=== PATIENT | female | born 1960 | race Asian ===

== ENCOUNTER 2024-04-29 19:04 | Inpatient (IN) | payer MEDICARE, MEDICAID ==
[~2024-04-29] VITALS: Ht 129.5 cm; Wt 44.7 kg
[2024-04-29] MEDS ORDERED: AMLO-257 PO (19:17)
[2024-04-29] MEDS ORDERED: CHOL25TA4 PO (19:27)
[2024-04-29 19:47] LABS: BASOPHILS % (AUTO) 0.4 % (0.0-2.0); EOSINOPHILS % (AUTO) 0.1 % (1.0-6.0); HEMATOCRIT 36.9 % (36-46); HEMOGLOBIN 12.5 g/dL (12.0-16.0); LYMPHOCYTES # (AUTO) 1.4 K/uL (1.0-4.8); LYMPHOCYTES % (AUTO) 8.9 % (22.0-44.0); MEAN CORPUSCULAR HGB CONC 33.8 G/dL (31.0-37.0); MEAN CORPUSCULAR VOLUME 98 fL (80-100); MONOCYTES # (AUTO) 1.3 K/uL (0.1-1.0); MONOCYTES % (AUTO) 7.7 % (2.0-9.0); NEUTROPHILS # (AUTO) 13.5 K/uL (1.8-7.7); NEUTROPHILS % (AUTO) 82.9 % (40.0-70.0); PLATELET COUNT (AUTO) 361 K/uL (150-450); RED BLOOD CELL COUNT(AUTO) 3.78 MIL/uL (4.00-5.20); RED CELL DISTRIBUTION WIDTH 14.4 % (11.5-14.5); WHITE BLOOD COUNT (AUTO) 16.3 K/uL (4.5-11.0)
[2024-04-29 20:03] LABS: ALBUMIN 2.9 g/dL (3.4-5.0); BILIRUBIN,DIRECT 0.8 mg/dL (0.00-0.20); BILIRUBIN,TOTAL 3.5 mg/dL (0.1-1.0); CREATININE 1.01 mg/dL (0.60-1.30); TOTAL PROTEIN, SERUM 7.8 g/dL (6.4-8.2)
[2024-04-29 20:09] LABS: POTASSIUM 2.8 mmol/L (3.5-5.1)
[2024-04-29] MEDS ORDERED: 0.9% SODIUM CHLORIDE 10 ML SYRINGE IVP PRN (20:15)
[2024-04-29] MEDS: POTASSIUM CHL 10 MEQ/WATER 50 ML IV SCH (20:18)
[2024-04-29] MEDS: SODIUM CHLORIDE 0.9% 1,150 ML IV ONE (20:18)
[2024-04-29 20:53] LABS: PROTHROMBIN TIME 11.1 SEC (9.4-11.6)
[2024-04-29 20:54] LABS: LACTIC ACID 2.1 mmol/L (0.4-2.0)
[2024-04-29] MEDS: CefTRIAXone 1 GM/DEXTROSE 50 ML IV ONE (21:19)
[2024-04-29] MEDS ORDERED: ZOLPIDEM TARTRATE 5 MG TABLET PO PRN (21:45)
[2024-04-29] MEDS ORDERED: MORPHINE SULFATE 2 MG/ML SYRINGE IVP PRN (21:45)
[2024-04-29] MEDS ORDERED: BISACODYL 10 MG RECTAL RECTAL SUPPOSITORY PR PRN (21:45)
[2024-04-29] MEDS ORDERED: MAGNESIUM SULFATE 2 GM/WATER 50 ML IV PRN (21:45)
[2024-04-29] MEDS ORDERED: MAGNESIUM SULFATE 4 GM/WATER 100 ML IV PRN (21:45)
[2024-04-29] MEDS ORDERED: MAGNESIUM HYDROXIDE SUSPENSION 30 ML UDCUP PO PRN (21:45)
[2024-04-29] MEDS ORDERED: MAGNESIUM OXIDE 400 MG TABLET PO PRN (21:45)
[2024-04-29] MEDS ORDERED: HYDROCODONE/ACETAMINOPHEN 5-325 MG TABLET PO PRN (21:45)
[2024-04-29 21:50] LABS: COVID AG,FIA SOURCE NASAL SWAB
[2024-04-29 22:00] LABS: APPEARANCE,URINE TURBID (CLEAR); BILIRUBIN,URINE NEGATIVE (NEGATIVE); COLOR,URINE YELLOW (YELLOW); GLUCOSE, URINE (UA) NEGATIVE (NEGATIVE); KETONES,URINE NEGATIVE (NEGATIVE); LEUKOCYTE ESTERASE ,URINE LARGE (NEGATIVE); NITRATE,URINE NEGATIVE (NEGATIVE); OCCULT BLOOD,URINE LARGE (NEGATIVE); PROTEIN,URINE 300-600,SEE CONFIRM mg/dL (NEGATIVE); SPECIFIC GRAVITIY, URINE 1.008 (1.003-1.030)
[2024-04-29 22:18] LABS: SARS-COV2 (COVID) ANTIGEN,FIA Negative (Negative)
[2024-04-29 22:19] LABS: INFLUENZA TYPE A NEGATIVE FOR TYPE A (NEGATIVE); INFLUENZA TYPE B NEGATIVE FOR TYPE B (NEGATIVE)
[2024-04-29 22:21] LABS: BACTERIA,URINE Many /HPF (None Seen)
[2024-04-29 22:30] LABS: SULFOSALICYLIC ACID,URINE 2+ (Negative)
[2024-04-29] MEDS: PIPERACILLIN/TAZO 3.375 GM/D5W 50 ML IV SCH (22:31)
[2024-04-29] MEDS: HEPARIN SODIUM,PORCINE 5,000 UNITS/ML VIAL SQ SCH (23:22)
[2024-04-29] MEDS: POTASSIUM CHL 10 MEQ/WATER 50 ML IV PRN (23:22)
[2024-04-29 23:23] VITALS: BP 126/71; PULSE 124; RESP 18; TEMP 98; O2SAT 97
[2024-04-29] MEDS: POTASSIUM CHLORIDE 40 MEQ in SODIUM CHLORIDE 0.9% 1,000 ML IV ONE (23:39)
[2024-04-30] MEDS ORDERED: INFLUENZA VIRUS VACCINE TVS (6MO+) 2024-25/PF 45 MCG/0.5 ML SYRINGE IM. ONE (03:00)
[2024-04-30 04:45] VITALS: BP 134/65; PULSE 109; RESP 18; TEMP 98.1; O2SAT 98
[2024-04-30 07:28] VITALS: BP 150/81; PULSE 53; RESP 18; TEMP 98; O2SAT 98
[2024-04-30] MEDS: AmLODIPine BESYLATE 5 MG TABLET PO SCH (08:26)
[2024-04-30] MEDS: CHOLECALCIFEROL (VIT D3) 1,000 UNITS [25 MCG] TABLET PO SCH (08:26)
[2024-04-30] MEDS: PANTOPRAZOLE SODIUM 40 MG/VIAL IVP SCH (08:26)
[2024-04-30 12:00] VITALS: BP 132/75; PULSE 76; RESP 18; TEMP 98; O2SAT 98
[2024-04-30 13:26] LABS: GLUCOMETER DEV NAME(LOC) 5N.2C; GLUCOSE,POINT OF CARE 184 MG/DL (70-110)
[2024-04-30 16:22] VITALS: BP 123/68; PULSE 66; RESP 18; TEMP 98; O2SAT 97
[2024-04-30 20:30] VITALS: BP 133/79; PULSE 107; RESP 18; TEMP 97.9; O2SAT 95
[2024-04-30] MEDS ORDERED: DEXTROSE 50%-WATER 25 GM/50 ML SYRINGE IVP PRN (22:45)
[2024-05-01] VITALS (8 sets, daily range): BP systolic 126–139; BP diastolic 62–86; PULSE 96–107; RESP 16–24; TEMP 97.4–99.6; O2SAT 95–99
[2024-05-01 07:29] LABS: BASOPHILS % (AUTO) 0.6 % (0.0-2.0); EOSINOPHILS % (AUTO) 2.1 % (1.0-6.0); HEMATOCRIT 34.1 % (36-46); HEMOGLOBIN 11.6 g/dL (12.0-16.0); LYMPHOCYTES # (AUTO) 2.4 K/uL (1.0-4.8); LYMPHOCYTES % (AUTO) 28.8 % (22.0-44.0); MEAN CORPUSCULAR HEMOGLOBIN 33.3 pg (26.0-34.0); MEAN CORPUSCULAR HGB CONC 34.2 G/dL (31.0-37.0); MEAN CORPUSCULAR VOLUME 97 fL (80-100); MONOCYTES # (AUTO) 0.9 K/uL (0.1-1.0); MONOCYTES % (AUTO) 10.7 % (2.0-9.0); NEUTROPHILS # (AUTO) 4.8 K/uL (1.8-7.7); NEUTROPHILS % (AUTO) 57.8 % (40.0-70.0); PLATELET COUNT (AUTO) 334 K/uL (150-450); RED CELL DISTRIBUTION WIDTH 15.1 % (11.5-14.5); WHITE BLOOD COUNT (AUTO) 8.2 K/uL (4.5-11.0)
[2024-05-01 07:46] LABS: ANION GAP 9 mmol/L (8-16); CALCIUM, TOTAL 8.5 mg/dL (8.8-10.5); CARBON DIOXIDE 24 mmol/L (22-29); CHLORIDE 107 mmol/L (98-107); CREATININE 0.77 mg/dL (0.60-1.30); GLOMERULAR FILTR. RATE CALC > 60 mL/min (>60); GLUCOSE,RANDOM 112 mg/dL (70-110); POTASSIUM 3.3 mmol/L (3.5-5.1); SODIUM SERUM 140 mmol/L (136-145); UREA NITROGEN, BLOOD 17 mg/dL (7-18)
[2024-05-01 09:36] LABS: GLUCOMETER DEV NAME(LOC) 5N.2C; GLUCOSE,POINT OF CARE 234 MG/DL (70-110)
[2024-05-01 09:36] LABS: GLUCOMETER DEV NAME(LOC) 5N.2C; GLUCOSE,POINT OF CARE 127 MG/DL (70-110)
[2024-05-01] MEDS: MINERAL OIL 133 ML ENEMA PR ONE (10:00)
[2024-05-01] MEDS: SODIUM CHLORIDE 0.9% 1,000 ML IV ONE (10:54)
[2024-05-01] MEDS: POTASSIUM CHLORIDE 20 MEQ ER TABLET PO PRN (11:14)
[2024-05-01] MEDS: ACETAMINOPHEN 325 MG TABLET PO PRN (16:42)
[2024-05-01 20:20] LABS: GLUCOMETER DEV NAME(LOC) 5N.2C; GLUCOSE,POINT OF CARE 123 MG/DL (70-110)
[2024-05-01] MEDS: INSULIN LISPRO 100 UNITS/ML SQ PRN (20:20)
[2024-05-01 20:21] LABS: GLUCOMETER DEV NAME(LOC) 5S.1D; GLUCOSE,POINT OF CARE 169 MG/DL (70-110)
[2024-05-01] MEDS: IPRATROPIUM BROMIDE 0.5 MG/2.5 ML NEB SOLUTION NEB PRN (20:36)
[2024-05-01] MEDS: ALBUTEROL SULFATE 2.5 MG/0.5 ML NEB SOLUTION NEB PRN (20:36)
[2024-05-01] MEDS: ONDANSETRON HCL 4 MG/2 ML VIAL IVP PRN (21:34)
[2024-05-02 04:23] VITALS: BP 157/78; PULSE 87; RESP 19; TEMP 98.3; O2SAT 99
[2024-05-02 07:21] LABS: EOSINOPHILS % (AUTO) 3.3 % (1.0-6.0); HEMOGLOBIN 11.6 g/dL (12.0-16.0); LYMPHOCYTES # (AUTO) 2.4 K/uL (1.0-4.8); MEAN CORPUSCULAR HEMOGLOBIN 32.8 pg (26.0-34.0); MEAN CORPUSCULAR HGB CONC 33.2 G/dL (31.0-37.0); MEAN CORPUSCULAR VOLUME 99 fL (80-100); MONOCYTES # (AUTO) 0.4 K/uL (0.1-1.0); MONOCYTES % (AUTO) 6.4 % (2.0-9.0); NEUTROPHILS # (AUTO) 3.8 K/uL (1.8-7.7); NEUTROPHILS % (AUTO) 55.3 % (40.0-70.0); PLATELET COUNT (AUTO) 354 K/uL (150-450); RED BLOOD CELL COUNT(AUTO) 3.55 MIL/uL (4.00-5.20); RED CELL DISTRIBUTION WIDTH 15.1 % (11.5-14.5); WHITE BLOOD COUNT (AUTO) 6.9 K/uL (4.5-11.0)
[2024-05-02 07:35] LABS: ANION GAP 9 mmol/L (8-16); CALCIUM, TOTAL 8.5 mg/dL (8.8-10.5); CARBON DIOXIDE 23 mmol/L (22-29); CHLORIDE 107 mmol/L (98-107); CREATININE 0.66 mg/dL (0.60-1.30); GLOMERULAR FILTR. RATE CALC > 60 mL/min (>60); GLUCOSE,RANDOM 110 mg/dL (70-110); POTASSIUM 3.5 mmol/L (3.5-5.1); SODIUM SERUM 139 mmol/L (136-145); UREA NITROGEN, BLOOD 15 mg/dL (7-18)
[2024-05-02 08:09] VITALS: BP 153/81; PULSE 96; RESP 18; TEMP 97.8; O2SAT 97
[2024-05-02 11:46] LABS: GLUCOMETER DEV NAME(LOC) 6S.1D; GLUCOSE,POINT OF CARE 110 MG/DL (70-110)
[2024-05-02 11:46] LABS: GLUCOMETER DEV NAME(LOC) 6S.1D; GLUCOSE,POINT OF CARE 145 MG/DL (70-110)
[2024-05-02 16:19] VITALS: BP 129/66; PULSE 95; RESP 17; TEMP 97.8; O2SAT 96
[2024-05-02] MEDS: SODIUM CHLORIDE 0.9% 1,000 ML IV ONE (16:34)
[2024-05-02 19:26] VITALS: BP 148/91; PULSE 92; RESP 17; TEMP 98.9; O2SAT 96
[2024-05-02 21:51] LABS: GLUCOMETER DEV NAME(LOC) 6S.1D; GLUCOSE,POINT OF CARE 114 MG/DL (70-110)
[2024-05-02 21:51] LABS: GLUCOMETER DEV NAME(LOC) 6S.1D; GLUCOSE,POINT OF CARE 179 MG/DL (70-110)
[2024-05-02 22:26] LABS: GLUCOMETER DEV NAME(LOC) 4E.2; GLUCOSE,POINT OF CARE 126 MG/DL (70-110)
[2024-05-03 04:00] VITALS: BP 157/67; PULSE 88; RESP 18; TEMP 97.7; O2SAT 97
[2024-05-03 07:55] LABS: BASOPHILS % (AUTO) 0.7 % (0.0-2.0); EOSINOPHILS % (AUTO) 5.4 % (1.0-6.0); HEMOGLOBIN 11.2 g/dL (12.0-16.0); LYMPHOCYTES # (AUTO) 2.3 K/uL (1.0-4.8); LYMPHOCYTES % (AUTO) 31.6 % (22.0-44.0); MEAN CORPUSCULAR HEMOGLOBIN 33.1 pg (26.0-34.0); MEAN CORPUSCULAR HGB CONC 33.9 G/dL (31.0-37.0); MEAN CORPUSCULAR VOLUME 98 fL (80-100); MONOCYTES # (AUTO) 0.4 K/uL (0.1-1.0); MONOCYTES % (AUTO) 5.1 % (2.0-9.0); NEUTROPHILS # (AUTO) 4.1 K/uL (1.8-7.7); NEUTROPHILS % (AUTO) 57.2 % (40.0-70.0); PLATELET COUNT (AUTO) 394 K/uL (150-450); RED BLOOD CELL COUNT(AUTO) 3.37 MIL/uL (4.00-5.20); RED CELL DISTRIBUTION WIDTH 14.9 % (11.5-14.5); WHITE BLOOD COUNT (AUTO) 7.1 K/uL (4.5-11.0)
[2024-05-03 08:00] VITALS: BP 149/87; PULSE 86; RESP 19; TEMP 98.3; O2SAT 95
[2024-05-03 08:08] LABS: ANION GAP 8 mmol/L (8-16); CALCIUM, TOTAL 8.5 mg/dL (8.8-10.5); CARBON DIOXIDE 26 mmol/L (22-29); CHLORIDE 103 mmol/L (98-107); CREATININE 0.63 mg/dL (0.60-1.30); GLOMERULAR FILTR. RATE CALC > 60 mL/min (>60); GLUCOSE,RANDOM 101 mg/dL (70-110); POTASSIUM 3.2 mmol/L (3.5-5.1); SODIUM SERUM 137 mmol/L (136-145); UREA NITROGEN, BLOOD 9 mg/dL (7-18)
[2024-05-03 16:03] VITALS: BP 130/83; PULSE 80; RESP 17; TEMP 98.4; O2SAT 96
[2024-05-03] MEDS ORDERED: POTASSIUM CHLORIDE 20 MEQ ER TABLET PO PRN (16:45)
[2024-05-03 18:35] LABS: GLUCOMETER DEV NAME(LOC) 6S.1D; GLUCOSE,POINT OF CARE 191 MG/DL (70-110)
[2024-05-03 18:35] LABS: GLUCOMETER DEV NAME(LOC) 6S.1D; GLUCOSE,POINT OF CARE 162 MG/DL (70-110)
[2024-05-03 19:23] VITALS: BP 155/83; PULSE 94; RESP 18; TEMP 98.1; O2SAT 96
[2024-05-03] MEDS ORDERED: SODIUM CHLORIDE 0.9% 500 ML IV ONE (20:21)
[2024-05-03 20:23] LABS: GLUCOMETER DEV NAME(LOC) 4E.2; GLUCOSE,POINT OF CARE 102 MG/DL (70-110)
[2024-05-03 20:45] LABS: GLUCOMETER DEV NAME(LOC) 6S.1D; GLUCOSE,POINT OF CARE 158 MG/DL (70-110)
[2024-05-04 06:28] VITALS: BP 142/77; PULSE 92; RESP 18; TEMP 97.6; O2SAT 97
[2024-05-04 07:10] LABS: GLUCOMETER DEV NAME(LOC) 6S.1D; GLUCOSE,POINT OF CARE 116 MG/DL (70-110)
[2024-05-04 07:56] VITALS: BP 153/78; PULSE 98; RESP 18; TEMP 97.8; O2SAT 99
[2024-05-04 08:16] LABS: ANION GAP 8 mmol/L (8-16); CALCIUM, TOTAL 9.1 mg/dL (8.8-10.5); CARBON DIOXIDE 27 mmol/L (22-29); CHLORIDE 104 mmol/L (98-107); CREATININE 0.78 mg/dL (0.60-1.30); GLOMERULAR FILTR. RATE CALC > 60 mL/min (>60); GLUCOSE,RANDOM 118 mg/dL (70-110); POTASSIUM 3.9 mmol/L (3.5-5.1); SODIUM SERUM 139 mmol/L (136-145); UREA NITROGEN, BLOOD 13 mg/dL (7-18)
[2024-05-04 08:22] LABS: BASOPHILS % (AUTO) 0.5 % (0.0-2.0); EOSINOPHILS % (AUTO) 4.3 % (1.0-6.0); HEMATOCRIT 37.7 % (36-46); HEMOGLOBIN 12.7 g/dL (12.0-16.0); LYMPHOCYTES # (AUTO) 2.8 K/uL (1.0-4.8); LYMPHOCYTES % (AUTO) 30.5 % (22.0-44.0); MEAN CORPUSCULAR HEMOGLOBIN 33.1 pg (26.0-34.0); MEAN CORPUSCULAR HGB CONC 33.8 G/dL (31.0-37.0); MEAN CORPUSCULAR VOLUME 98 fL (80-100); MONOCYTES # (AUTO) 0.7 K/uL (0.1-1.0); MONOCYTES % (AUTO) 7.8 % (2.0-9.0); NEUTROPHILS # (AUTO) 5.3 K/uL (1.8-7.7); NEUTROPHILS % (AUTO) 56.9 % (40.0-70.0); PLATELET COUNT (AUTO) 516 K/uL (150-450); RED BLOOD CELL COUNT(AUTO) 3.85 MIL/uL (4.00-5.20); RED CELL DISTRIBUTION WIDTH 14.8 % (11.5-14.5); WHITE BLOOD COUNT (AUTO) 9.3 K/uL (4.5-11.0)
[2024-05-04] MEDS ORDERED: AMLO-258 PO (11:50)
[2024-05-04] MEDS ORDERED: CEPH-558 PO (11:50)
[2024-05-04] MEDS ORDERED: ALBU18HF12 IH (11:50)
[2024-05-04 15:56] VITALS: BP 140/94; PULSE 108; RESP 18; TEMP 97.6; O2SAT 97
== END 2024-05-04 16:25 | disposition home or self-care (01) | DRG 871 ==
LOC: EMS 19:08 → EDH 21:50 → 5N 22:50 → 4E 05-01 18:30
PROVIDERS: ADMIT Hospitalist; ATTEND Hospitalist
DX: A41.9 Sepsis, unspecified organism (principal); E43 Unspecified severe protein-calorie malnutrition; F84.0 Autistic disorder; E87.6 Hypokalemia; Z20.822 Contact with and (suspected) exposure to COVID-19; I10 Essential (primary) hypertension; I16.0 Hypertensive urgency; K56.41 Fecal impaction; K76.89 Other specified diseases of liver; Z68.26 Body mass index [BMI] 26.0-26.9, adult; R73.9 Hyperglycemia, unspecified; N30.90 Cystitis, unspecified without hematuria; Q90.9 Down syndrome, unspecified
CPT/HCPCS: 71045; 74019; 74176; 80048; 80076; 81001; 81002; 82040; 82962; 83605; 83735; 84132; 84145; 85025; 85610; 87040; 87077; 87086; 87186; 87804; 92610; 93005; 94640; 97116; 97163; 99285; G0378; J0696; J1644; J2405; J2470; J2543; J3480; J7030; J7040; 36415-L1; 36415-TC; J7613

== ENCOUNTER 2024-09-14 10:59 | Inpatient (IN) | payer MEDICARE, MEDICAID ==
[~2024-09-14] VITALS: Ht 149.9 cm; Wt 45.0 kg
[~2024-09-14 10:59] MED LIST: ALBU18HF12 IH; AMLO-258 PO; CEPH-558 PO; CHOL25TA4 PO
[2024-09-14 15:27] LABS: APPEARANCE,URINE TURBID (CLEAR); BILIRUBIN,URINE NEGATIVE (NEGATIVE); COLOR,URINE YELLOW (YELLOW); GLUCOSE, URINE (UA) NEGATIVE (NEGATIVE); KETONES,URINE NEGATIVE (NEGATIVE); LEUKOCYTE ESTERASE ,URINE LARGE (NEGATIVE); NITRATE,URINE POSITIVE (NEGATIVE); OCCULT BLOOD,URINE TRACE (NEGATIVE); PH,URINE 8.5 (5.0-8.0); PROTEIN,URINE 300-600,SEE CONFIRM mg/dL (NEGATIVE); UROBILINOGEN,URINE <=1.0 mg/dL (<=1.0)
[2024-09-14 15:54] LABS: BACTERIA,URINE Many /HPF (None Seen); SQUAMOUS EPITHELIAL CELL,UR Few /LPF (None Seen); SULFOSALICYLIC ACID,URINE 1+ (Negative); WBC,URINE 26-50 /HPF (0-5)
[2024-09-14 16:33] LABS: BASOPHILS % (AUTO) 0.8 % (0.0-2.0); EOSINOPHILS % (AUTO) 0.2 % (1.0-6.0); HEMATOCRIT 40.3 % (36-46); HEMOGLOBIN 13.3 g/dL (12.0-16.0); LYMPHOCYTES # (AUTO) 1.7 K/uL (1.0-4.8); LYMPHOCYTES % (AUTO) 22.2 % (22.0-44.0); MEAN CORPUSCULAR HEMOGLOBIN 32.8 pg (26.0-34.0); MEAN CORPUSCULAR HGB CONC 32.9 G/dL (31.0-37.0); MEAN CORPUSCULAR VOLUME 100 fL (80-100); MONOCYTES # (AUTO) 0.5 K/uL (0.1-1.0); MONOCYTES % (AUTO) 6.4 % (2.0-9.0); NEUTROPHILS # (AUTO) 5.4 K/uL (1.8-7.7); NEUTROPHILS % (AUTO) 70.4 % (40.0-70.0); PLATELET COUNT (AUTO) 450 K/uL (150-450); RED BLOOD CELL COUNT(AUTO) 4.05 MIL/uL (4.00-5.20); RED CELL DISTRIBUTION WIDTH 14.4 % (11.5-14.5); WHITE BLOOD COUNT (AUTO) 7.7 K/uL (4.5-11.0)
[2024-09-14 16:43] LABS: ANION GAP 10 mmol/L (8-16); CALCIUM, TOTAL 9.5 mg/dL (8.8-10.5); CARBON DIOXIDE 26 mmol/L (22-29); CHLORIDE 107 mmol/L (98-107); CREATININE 0.64 mg/dL (0.60-1.30); GLOMERULAR FILTR. RATE CALC > 60 mL/min (>60); GLUCOSE,RANDOM 151 mg/dL (70-110); POTASSIUM 3.3 mmol/L (3.5-5.1); SODIUM SERUM 143 mmol/L (136-145); UREA NITROGEN, BLOOD 25 mg/dL (7-18)
[2024-09-14 16:48] LABS: TROPONIN I-HIGH SENSITIVITY 6 ng/L (<51)
[2024-09-14] MEDS: CefTRIAXone 1 GM/DEXTROSE 50 ML IV ONE (18:58)
[2024-09-14] MEDS: POTASSIUM CHLORIDE 20 MEQ ER TABLET PO ONE (18:59)
[2024-09-14] MEDS: POTASSIUM CHL 10 MEQ/WATER 50 ML IV ONE (19:39)
[2024-09-14 20:57] VITALS: BP 155/76; PULSE 88; RESP 18; TEMP 97.5; O2SAT 96
[2024-09-14] MEDS ORDERED: MAGNESIUM HYDROXIDE SUSPENSION 30 ML UDCUP PO PRN (21:00)
[2024-09-14] MEDS ORDERED: ACETAMINOPHEN 325 MG TABLET PO PRN (21:00)
[2024-09-14] MEDS ORDERED: ZOLPIDEM TARTRATE 5 MG TABLET PO PRN (21:00)
[2024-09-14] MEDS ORDERED: HYDROCODONE/ACETAMINOPHEN 5-325 MG TABLET PO PRN (21:00)
[2024-09-14] MEDS ORDERED: ONDANSETRON HCL 4 MG/2 ML VIAL IVP PRN (21:00)
[2024-09-14] MEDS ORDERED: MORPHINE SULFATE 2 MG/ML SYRINGE IVP PRN (21:00)
[2024-09-14] MEDS: *CLINICAL-LEVOFLOXACIN IVPB DOSING CLINICAL ONE (21:03)
[2024-09-14] MEDS: DOCUSATE SODIUM 100 MG CAPSULE PO SCH (21:32)
[2024-09-15] MEDS: HEPARIN SODIUM,PORCINE 5,000 UNITS/ML VIAL SQ SCH (00:29)
[2024-09-15] MEDS ORDERED: SODIUM CHLORIDE 0.9% 500 ML IV ONE (02:35)
[2024-09-15] MEDS: LEVOFLOXACIN 500 MG/D5% WATER 100 ML IV SCH (02:45)
[2024-09-15 04:53] VITALS: BP 126/89; PULSE 75; RESP 18; TEMP 97.7; O2SAT 98
[2024-09-15 08:15] VITALS: BP 149/87; PULSE 100; RESP 20; TEMP 97.9; O2SAT 98
[2024-09-15 08:38] LABS: BASOPHILS % (AUTO) 0.5 % (0.0-2.0); EOSINOPHILS % (AUTO) 0.3 % (1.0-6.0); HEMATOCRIT 43.8 % (36-46); HEMOGLOBIN 14.6 g/dL (12.0-16.0); LYMPHOCYTES # (AUTO) 1.7 K/uL (1.0-4.8); LYMPHOCYTES % (AUTO) 20.7 % (22.0-44.0); MEAN CORPUSCULAR HEMOGLOBIN 33.2 pg (26.0-34.0); MEAN CORPUSCULAR HGB CONC 33.3 G/dL (31.0-37.0); MEAN CORPUSCULAR VOLUME 100 fL (80-100); MONOCYTES # (AUTO) 0.4 K/uL (0.1-1.0); MONOCYTES % (AUTO) 4.3 % (2.0-9.0); NEUTROPHILS # (AUTO) 6.2 K/uL (1.8-7.7); NEUTROPHILS % (AUTO) 74.2 % (40.0-70.0); PLATELET COUNT (AUTO) 504 K/uL (150-450); RED CELL DISTRIBUTION WIDTH 14.2 % (11.5-14.5); WHITE BLOOD COUNT (AUTO) 8.3 K/uL (4.5-11.0)
[2024-09-15 08:50] LABS: ANION GAP 13 mmol/L (8-16); CALCIUM, TOTAL 9.4 mg/dL (8.8-10.5); CARBON DIOXIDE 23 mmol/L (22-29); CHLORIDE 105 mmol/L (98-107); CREATININE 0.74 mg/dL (0.60-1.30); GLOMERULAR FILTR. RATE CALC > 60 mL/min (>60); GLUCOSE,RANDOM 157 mg/dL (70-110); POTASSIUM 3.5 mmol/L (3.5-5.1); SODIUM SERUM 141 mmol/L (136-145); UREA NITROGEN, BLOOD 20 mg/dL (7-18)
[2024-09-15] MEDS: AmLODIPine BESYLATE 10 MG TABLET PO SCH (09:40)
[2024-09-15] MEDS: PANTOPRAZOLE SODIUM 40 MG DR TABLET PO SCH (09:40)
[2024-09-15] MEDS: CHOLECALCIFEROL (VIT D3) 1,000 UNITS [25 MCG] TABLET PO SCH (09:41)
[2024-09-15 16:26] VITALS: BP 132/77; PULSE 100; RESP 18; TEMP 98.2; O2SAT 98
[2024-09-15] MEDS: DEXTROSE 5%-0.45% SODIUM CHL 1,000 ML IV ONE (19:02)
[2024-09-15 20:09] VITALS: BP 143/88; PULSE 90; RESP 19; TEMP 97.8; O2SAT 98
[2024-09-16 04:44] VITALS: BP 143/81; PULSE 90; RESP 18; TEMP 97.6; O2SAT 98
[2024-09-16 07:15] LABS: APPEARANCE,URINE BLOODY (CLEAR); BILIRUBIN,URINE NEGATIVE (NEGATIVE); COLOR,URINE RED (YELLOW); GLUCOSE, URINE (UA) NEGATIVE (NEGATIVE); KETONES,URINE TRACE mg/dL (NEGATIVE); LEUKOCYTE ESTERASE ,URINE LARGE (NEGATIVE); NITRATE,URINE NEGATIVE (NEGATIVE); OCCULT BLOOD,URINE LARGE (NEGATIVE); PROTEIN,URINE 300-600,SEE CONFIRM mg/dL (NEGATIVE); SPECIFIC GRAVITIY, URINE 1.017 (1.003-1.030); UROBILINOGEN,URINE <=1.0 mg/dL (<=1.0)
[2024-09-16 07:21] LABS: BACTERIA,URINE None Seen /HPF (None Seen); RBC,URINE Full Field /HPF (0-2); SULFOSALICYLIC ACID,URINE 3+ (Negative); WBC,URINE 26-50 /HPF (0-5)
[2024-09-16 07:48] LABS: BASOPHILS % (AUTO) 0.7 % (0.0-2.0); EOSINOPHILS % (AUTO) 0.4 % (1.0-6.0); HEMATOCRIT 43.3 % (36-46); HEMOGLOBIN 14.2 g/dL (12.0-16.0); LYMPHOCYTES # (AUTO) 1.6 K/uL (1.0-4.8); LYMPHOCYTES % (AUTO) 24.3 % (22.0-44.0); MEAN CORPUSCULAR HEMOGLOBIN 33.1 pg (26.0-34.0); MEAN CORPUSCULAR HGB CONC 32.9 G/dL (31.0-37.0); MEAN CORPUSCULAR VOLUME 101 fL (80-100); MONOCYTES # (AUTO) 0.5 K/uL (0.1-1.0); MONOCYTES % (AUTO) 7.1 % (2.0-9.0); NEUTROPHILS # (AUTO) 4.5 K/uL (1.8-7.7); NEUTROPHILS % (AUTO) 67.5 % (40.0-70.0); PLATELET COUNT (AUTO) 466 K/uL (150-450); RED CELL DISTRIBUTION WIDTH 14.1 % (11.5-14.5); WHITE BLOOD COUNT (AUTO) 6.6 K/uL (4.5-11.0)
[2024-09-16 07:51] VITALS: BP 137/103; PULSE 131; RESP 18; TEMP 97.9; O2SAT 97
[2024-09-16 07:57] LABS: ANION GAP 10 mmol/L (8-16); CARBON DIOXIDE 25 mmol/L (22-29); CHLORIDE 104 mmol/L (98-107); CREATININE 0.75 mg/dL (0.60-1.30); GLOMERULAR FILTR. RATE CALC > 60 mL/min (>60); GLUCOSE,RANDOM 173 mg/dL (70-110); POTASSIUM 3.3 mmol/L (3.5-5.1); SODIUM SERUM 139 mmol/L (136-145); UREA NITROGEN, BLOOD 20 mg/dL (7-18)
[2024-09-16 08:04] LABS: RBC MORPHOLOGY COMMENT ABNORMAL RBC MORPH
[2024-09-16 08:16] VITALS: PULSE 120
[2024-09-16] MEDS ORDERED: POTASSIUM CHLORIDE 20 MEQ ER TABLET PO PRN (08:30)
[2024-09-16] MEDS: POTASSIUM CHL 10 MEQ/WATER 50 ML IV PRN (09:24)
[2024-09-16] MEDS ORDERED: SODIUM CHLORIDE 0.9% IRRIG BTL 1,000 ML IRRIG ONE (10:05)
[2024-09-16 13:13] VITALS: BP 148/61; PULSE 117; RESP 18; O2SAT 98
[2024-09-16] MEDS: SODIUM CHLORIDE 0.9% 250 ML IV ONE (13:47)
[2024-09-16] MEDS: DEXTROSE 5%-0.45% SODIUM CHL 1,000 ML IV SCH (14:54)
[2024-09-16 16:00] VITALS: BP 140/78; PULSE 99; RESP 18; TEMP 97.7; O2SAT 99
[2024-09-16 19:46] VITALS: BP 139/82; PULSE 118; RESP 18; TEMP 98.4; O2SAT 98
[2024-09-17 05:17] VITALS: BP 126/73; PULSE 110; RESP 18; TEMP 98.6; O2SAT 96
[2024-09-17 07:26] VITALS: BP 135/82; PULSE 114; RESP 20; TEMP 98.7; O2SAT 97
[2024-09-17 09:00] LABS: BASOPHILS % (AUTO) 0.8 % (0.0-2.0); EOSINOPHILS % (AUTO) 1.1 % (1.0-6.0); HEMOGLOBIN 12.8 g/dL (12.0-16.0); LYMPHOCYTES # (AUTO) 2.2 K/uL (1.0-4.8); LYMPHOCYTES % (AUTO) 38.4 % (22.0-44.0); MEAN CORPUSCULAR HEMOGLOBIN 32.8 pg (26.0-34.0); MEAN CORPUSCULAR HGB CONC 32.8 G/dL (31.0-37.0); MEAN CORPUSCULAR VOLUME 100 fL (80-100); MONOCYTES # (AUTO) 0.5 K/uL (0.1-1.0); NEUTROPHILS % (AUTO) 51.7 % (40.0-70.0); PLATELET COUNT (AUTO) 444 K/uL (150-450); RED BLOOD CELL COUNT(AUTO) 3.91 MIL/uL (4.00-5.20); WHITE BLOOD COUNT (AUTO) 5.7 K/uL (4.5-11.0)
[2024-09-17 09:10] LABS: ANION GAP 11 mmol/L (8-16); CALCIUM, TOTAL 8.4 mg/dL (8.8-10.5); CARBON DIOXIDE 24 mmol/L (22-29); CHLORIDE 104 mmol/L (98-107); CREATININE 0.54 mg/dL (0.60-1.30); GLOMERULAR FILTR. RATE CALC > 60 mL/min (>60); GLUCOSE,RANDOM 146 mg/dL (70-110); POTASSIUM 3.4 mmol/L (3.5-5.1); SODIUM SERUM 139 mmol/L (136-145); UREA NITROGEN, BLOOD 8 mg/dL (7-18)
[2024-09-17] MEDS ORDERED: SODIUM CHLORIDE 0.9% IRRIG BTL 1,000 ML IRRIG ONE (12:28)
[2024-09-17] MEDS ORDERED: SODIUM CHLORIDE 0.9% 250 ML IV ONE (12:34)
[2024-09-17 15:36] VITALS: BP 152/79; PULSE 117; RESP 18; TEMP 98.4; O2SAT 98
[2024-09-17 19:35] VITALS: BP 147/88; PULSE 134; RESP 18; TEMP 99; O2SAT 100
[2024-09-18 04:25] VITALS: BP 132/97; PULSE 112; RESP 18; TEMP 97.7; O2SAT 98
[2024-09-18] MEDS: BISACODYL 10 MG RECTAL RECTAL SUPPOSITORY PR PRN (04:35)
[2024-09-18 07:21] LABS: BASOPHILS % (AUTO) 0.5 % (0.0-2.0); EOSINOPHILS % (AUTO) 0.4 % (1.0-6.0); HEMATOCRIT 38.3 % (36-46); HEMOGLOBIN 12.8 g/dL (12.0-16.0); LYMPHOCYTES # (AUTO) 2.4 K/uL (1.0-4.8); MEAN CORPUSCULAR HEMOGLOBIN 33.3 pg (26.0-34.0); MEAN CORPUSCULAR HGB CONC 33.4 G/dL (31.0-37.0); MEAN CORPUSCULAR VOLUME 100 fL (80-100); MONOCYTES # (AUTO) 0.7 K/uL (0.1-1.0); NEUTROPHILS # (AUTO) 8.6 K/uL (1.8-7.7); NEUTROPHILS % (AUTO) 73.1 % (40.0-70.0); PLATELET COUNT (AUTO) 438 K/uL (150-450); RED BLOOD CELL COUNT(AUTO) 3.84 MIL/uL (4.00-5.20); RED CELL DISTRIBUTION WIDTH 13.9 % (11.5-14.5); WHITE BLOOD COUNT (AUTO) 11.8 K/uL (4.5-11.0)
[2024-09-18 07:57] VITALS: BP 136/82; PULSE 118; RESP 18; TEMP 97.9; O2SAT 96
[2024-09-18] MEDS ORDERED: CALCIUM CHLORIDE 100 MG/ML 10 ML SYRINGE IVP ONE (12:00)
[2024-09-18] MEDS ORDERED: PROPOFOL 1% 20 ML VIAL IVP ONE (12:00)
[2024-09-18] MEDS ORDERED: LIDOCAINE/PF 2% 5 ML VIAL ONE (12:00)
[2024-09-18] MEDS ORDERED: ESMOLOL HCL 10 MG/ML 10 ML VIAL IVP ONE (12:00)
[2024-09-18 15:34] VITALS: BP 137/83; PULSE 117; RESP 18; TEMP 98.4; O2SAT 96
[2024-09-18] MEDS ORDERED: SODIUM CHLORIDE 0.9% IRRIG BTL 1,000 ML IRRIG ONE (18:49)
[2024-09-18 19:35] LABS: APPEARANCE,URINE HAZY (CLEAR); BILIRUBIN,URINE NEGATIVE (NEGATIVE); COLOR,URINE BROWN (YELLOW); GLUCOSE, URINE (UA) NEGATIVE (NEGATIVE); KETONES,URINE TRACE mg/dL (NEGATIVE); LEUKOCYTE ESTERASE ,URINE SMALL (NEGATIVE); NITRATE,URINE NEGATIVE (NEGATIVE); OCCULT BLOOD,URINE LARGE (NEGATIVE); PROTEIN,URINE 100-200,SEE CONFIRM mg/dL (NEGATIVE); SPECIFIC GRAVITIY, URINE 1.009 (1.003-1.030); UROBILINOGEN,URINE <=1.0 mg/dL (<=1.0)
[2024-09-18 19:54] LABS: SULFOSALICYLIC ACID,URINE 1+ (Negative)
[2024-09-18 19:55] LABS: BACTERIA,URINE None Seen /HPF (None Seen); RBC,URINE >100 /HPF (0-2); SQUAMOUS EPITHELIAL CELL,UR Rare /LPF (None Seen)
[2024-09-18 20:08] VITALS: BP 139/96; PULSE 122; RESP 19; TEMP 97.5; O2SAT 96
[2024-09-19] MEDS ORDERED: SODIUM CHLORIDE 0.9% 250 ML IV ONE (03:37)
[2024-09-19 06:40] VITALS: BP 142/91; PULSE 122; RESP 19; TEMP 98.4; O2SAT 96
[2024-09-19 08:02] VITALS: BP 147/96; PULSE 125; RESP 18; TEMP 97.5; O2SAT 96
[2024-09-19 16:02] VITALS: BP 142/91; PULSE 115; RESP 18; TEMP 97.7; O2SAT 98
[2024-09-19 19:30] VITALS: BP 145/86; PULSE 125; RESP 18; TEMP 97.5; O2SAT 95
[2024-09-20 05:00] VITALS: BP 124/88; PULSE 115; RESP 18; TEMP 97.5; O2SAT 97
[2024-09-20 07:25] VITALS: BP 133/71; PULSE 110; RESP 20; TEMP 98.2; O2SAT 97
[2024-09-20] MEDS ORDERED: SODIUM CHLORIDE 0.9% IRRIG BTL 1,000 ML IRRIG ONE (11:24)
[2024-09-20 15:25] VITALS: BP 141/87; PULSE 107; RESP 18; TEMP 97.7; O2SAT 96
[2024-09-20 20:25] VITALS: BP 140/81; PULSE 112; RESP 20; TEMP 98.4; O2SAT 98
[2024-09-21 04:47] VITALS: BP 123/86; PULSE 115; RESP 18; TEMP 97.7; O2SAT 98
[2024-09-21 07:44] VITALS: BP 129/95; PULSE 106; RESP 19; TEMP 98.1; O2SAT 98
[2024-09-21] MEDS ORDERED: SODIUM CHLORIDE 0.9% 1,000 ML ONE (09:30)
[2024-09-21 16:10] VITALS: BP 151/82; PULSE 115; RESP 19; TEMP 98.1; O2SAT 97
[2024-09-21] MEDS ORDERED: SODIUM CHLORIDE 0.9% 100 ML ONE (16:14)
[2024-09-21] MEDS ORDERED: IOHEXOL 350 MG/ML 100 ML VIAL ONE ×2 (16:14→21:42)
[2024-09-21 16:28] VITALS: BP 126/94; PULSE 105
[2024-09-21 19:32] VITALS: BP 144/82; PULSE 114; RESP 18; TEMP 97.9; O2SAT 98
[2024-09-22] MEDS: SODIUM CHLORIDE 0.9% 500 ML IV ONE (01:56)
[2024-09-22] MEDS: PIPERACILLIN/TAZO 3.375 GM/D5W 50 ML IV SCH (01:57)
[2024-09-22 03:36] LABS: GLUCOMETER DEV NAME(LOC) 5S.1D; GLUCOSE,POINT OF CARE 154 MG/DL (70-110)
[2024-09-22 04:35] VITALS: BP 127/75; PULSE 104; RESP 18; TEMP 97.3; O2SAT 98
[2024-09-22 08:01] VITALS: BP 146/86; PULSE 94; RESP 20; TEMP 97.9; O2SAT 98
[2024-09-22] MEDS ORDERED: SODIUM CHLORIDE 0.9% IRRIG BTL 1,000 ML IRRIG ONE (11:18)
[2024-09-22 15:28] VITALS: BP 115/68; PULSE 83; RESP 20; TEMP 98.1; O2SAT 96
[2024-09-22] MEDS ORDERED: AMOX400S55 GT (15:37)
[2024-09-22] MEDS ORDERED: TAMS0.4C94 GT (15:39)
[2024-09-22 16:36] LABS: ANION GAP 9 mmol/L (8-16); CALCIUM, TOTAL 9.6 mg/dL (8.8-10.5); CARBON DIOXIDE 31 mmol/L (22-29); CHLORIDE 103 mmol/L (98-107); GLOMERULAR FILTR. RATE CALC > 60 mL/min (>60); GLUCOSE,RANDOM 123 mg/dL (70-110); SODIUM SERUM 143 mmol/L (136-145); UREA NITROGEN, BLOOD 4 mg/dL (7-18)
[2024-09-22 16:41] LABS: POTASSIUM 2.8 mmol/L (3.5-5.1)
[2024-09-22] MEDS: POTASSIUM CHLORIDE 10% 40 MEQ/30 ML LIQUID UDCUP PEG ONE (16:55)
[2024-09-22] MEDS: POTASSIUM CHL 10 MEQ/WATER 50 ML IV SCH (16:56)
[2024-09-22 19:36] VITALS: BP 142/85; PULSE 90; RESP 18; TEMP 98.8; O2SAT 96
== END 2024-09-22 20:20 | disposition home or self-care (01) | DRG 177 ==
LOC: TELEHEALTH 11:02 → EDH 18:48 → 4E 21:12
PROVIDERS: ADMIT Internal Medicine; ATTEND Internal Medicine
PROC: 0DH63UZ Insertion of Feeding Device into Stomach, Percutaneous Approach (ICD-10-PCS; principal; 2024-09-21 10:30)
DX: J69.0 Pneumonitis due to inhalation of food and vomit (principal); E43 Unspecified severe protein-calorie malnutrition; G93.41 Metabolic encephalopathy; F84.0 Autistic disorder; R31.0 Gross hematuria; I10 Essential (primary) hypertension; J45.909 Unspecified asthma, uncomplicated; E87.6 Hypokalemia; Z68.20 Body mass index [BMI] 20.0-20.9, adult; Q90.9 Down syndrome, unspecified; R62.50 Unspecified lack of expected normal physiological development in childhood; N32.3 Diverticulum of bladder; R13.10 Dysphagia, unspecified; R00.0 Tachycardia, unspecified; B96.4 Proteus (mirabilis) (morganii) as the cause of diseases classified elsewhere
CPT/HCPCS: 36245; 36569; 71045; 71275; 73521; 74176; 74230; 76937; 80048; 81001; 81002; 82962; 83735; 84132; 84484; 85025; 87077; 87086; 87186; 92526; 92610; 92611; 93005; 96365; 96367; 97116; 97162; 97530; 99285; G0378; J0696; J1644; J1956; J2543; J2704; J3480; J3490; J7030; J7040; J7050; 36415-L1; 36415-TC

== ENCOUNTER 2024-09-24 09:15 | Inpatient (IN) | payer MEDICARE, MEDICAID ==
[~2024-09-24] VITALS: Ht 129.5 cm; Wt 36.9 kg
[~2024-09-24 09:15] MED LIST changes: -AMLO-258 PO; +AMOX400S55 GT; -CEPH-558 PO; -CHOL25TA4 PO; +TAMS0.4C94 GT
[2024-09-24 09:45] LABS: OCCULT BLOOD,GASTRIC FLUID POSITIVE (NEGATIVE); PH, GASTRIC OKAY
[2024-09-24] MEDS: PANTOPRAZOLE SODIUM 40 MG/VIAL IVP ONE (09:50)
[2024-09-24] MEDS: SODIUM CHLORIDE 0.9% 1,500 ML IV ONE (09:53)
[2024-09-24] MEDS: CefTRIAXone 1 GM/DEXTROSE 50 ML IV ONE (09:53)
[2024-09-24] MEDS: 0.9% SODIUM CHLORIDE 10 ML SYRINGE IVP PRN (09:58)
[2024-09-24 10:01] LABS: BASOPHILS % (AUTO) 0.3 % (0.0-2.0); EOSINOPHILS % (AUTO) 0 % (1.0-6.0); HEMATOCRIT 36.1 % (36-46); HEMOGLOBIN 11.8 g/dL (12.0-16.0); LYMPHOCYTES # (AUTO) 0.9 K/uL (1.0-4.8); LYMPHOCYTES % (AUTO) 3.8 % (22.0-44.0); MEAN CORPUSCULAR HEMOGLOBIN 32.6 pg (26.0-34.0); MEAN CORPUSCULAR HGB CONC 32.6 G/dL (31.0-37.0); MEAN CORPUSCULAR VOLUME 100 fL (80-100); MONOCYTES # (AUTO) 0.5 K/uL (0.1-1.0); MONOCYTES % (AUTO) 2.3 % (2.0-9.0); NEUTROPHILS # (AUTO) 21.8 K/uL (1.8-7.7); PLATELET COUNT (AUTO) 467 K/uL (150-450); RED BLOOD CELL COUNT(AUTO) 3.61 MIL/uL (4.00-5.20); RED CELL DISTRIBUTION WIDTH 14.3 % (11.5-14.5); WHITE BLOOD COUNT (AUTO) 23.3 K/uL (4.5-11.0)
[2024-09-24 10:03] LABS: NEUTROPHILS % (AUTO) 93.6 % (40.0-70.0)
[2024-09-24] MEDS: PANTOPRAZOLE SODIUM 80 MG in SODIUM CHLORIDE 0.9% 100 ML IV SCH ×2 (10:09→19:38)
[2024-09-24 10:12] LABS: CARBON DIOXIDE 33 mmol/L (22-29); CREATININE 0.88 mg/dL (0.60-1.30); GLOMERULAR FILTR. RATE CALC > 60 mL/min (>60); GLUCOSE,RANDOM 286 mg/dL (70-110); POTASSIUM 3.9 mmol/L (3.5-5.1); PROTHROMBIN TIME 10.5 SEC (9.4-11.6); SODIUM SERUM 139 mmol/L (136-145); UREA NITROGEN, BLOOD 29 mg/dL (7-18)
[2024-09-24 10:20] LABS: LACTIC ACID 1.9 mmol/L (0.4-2.0)
[2024-09-24 10:22] LABS: ANION GAP 8 mmol/L (8-16); CHLORIDE 99 mmol/L (98-107); LIPASE 16 U/L (16-77); TROPONIN I-HIGH SENSITIVITY 6 ng/L (<51)
[2024-09-24 10:29] LABS: B-TYPE NATRIURETIC PEPTIDE 80 pg/mL (0-100)
[2024-09-24 10:34] LABS: ALBUMIN 2.9 g/dL (3.4-5.0); BILIRUBIN,DIRECT 0.1 mg/dL (0.00-0.20); BILIRUBIN,TOTAL 0.4 mg/dL (0.1-1.0); TOTAL PROTEIN, SERUM 7.7 g/dL (6.4-8.2)
[2024-09-24 11:45] LABS: APPEARANCE,URINE HAZY (CLEAR); BILIRUBIN,URINE NEGATIVE (NEGATIVE); COLOR,URINE LIGHT YELLOW (YELLOW); GLUCOSE, URINE (UA) NEGATIVE (NEGATIVE); KETONES,URINE NEGATIVE (NEGATIVE); LEUKOCYTE ESTERASE ,URINE MODERATE (NEGATIVE); NITRATE,URINE NEGATIVE (NEGATIVE); OCCULT BLOOD,URINE MODERATE (NEGATIVE); PROTEIN,URINE NEGATIVE (NEGATIVE); SPECIFIC GRAVITIY, URINE 1.011 (1.003-1.030); UROBILINOGEN,URINE <=1.0 mg/dL (<=1.0)
[2024-09-24 11:57] LABS: BACTERIA,URINE Few /HPF (None Seen); RBC,URINE 0-2 /HPF (0-2)
[2024-09-24 11:58] LABS: YEAST,URINE Moderate /HPF (None Seen)
[2024-09-24] MEDS ORDERED: MAGNESIUM HYDROXIDE SUSPENSION 30 ML UDCUP PO PRN (12:45)
[2024-09-24] MEDS ORDERED: BISACODYL 10 MG RECTAL RECTAL SUPPOSITORY PR PRN (12:45)
[2024-09-24] MEDS ORDERED: MORPHINE SULFATE 2 MG/ML SYRINGE IVP PRN (12:45)
[2024-09-24] MEDS ORDERED: HYDROCODONE/ACETAMINOPHEN 5-325 MG TABLET PO PRN (12:45)
[2024-09-24] MEDS ORDERED: ONDANSETRON HCL 4 MG/2 ML VIAL IVP PRN (12:45)
[2024-09-24] MEDS ORDERED: ACETAMINOPHEN 325 MG TABLET PO PRN (12:45)
[2024-09-24] MEDS ORDERED: ZOLPIDEM TARTRATE 5 MG TABLET PO PRN (12:45)
[2024-09-24] MEDS ORDERED: ALBUTEROL SULFATE HFA 90 MCG/PUFF 8 GM INHALER IH PRN (12:45)
[2024-09-24] MEDS: SODIUM CHLORIDE 0.9% 1,000 ML IV ONE (13:08)
[2024-09-24] MEDS ORDERED: CHOL25TA4 PO (13:35)
[2024-09-24] MEDS ORDERED: ASCO500 PO (13:35)
[2024-09-24] MEDS ORDERED: AMLO-258 PO (13:35)
[2024-09-24] MEDS ORDERED: MULT-1366 PO (13:35)
[2024-09-24] MEDS ORDERED: METO25 PO (13:35)
[2024-09-24 16:15] VITALS: BP 151/88; PULSE 128; RESP 17; TEMP 98.1; O2SAT 98
[2024-09-24] MEDS: TAMSULOSIN HCL 0.4 MG CAPSULE PO SCH (19:48)
[2024-09-24] MEDS: DOCUSATE SODIUM 100 MG CAPSULE PO SCH (19:48)
[2024-09-24 20:26] VITALS: BP 130/67; PULSE 116; RESP 18; TEMP 98.5; O2SAT 94
[2024-09-25 00:10] VITALS: BP 113/64; PULSE 104; RESP 17; TEMP 98.2; O2SAT 95
[2024-09-25 04:00] VITALS: BP 121/61; PULSE 105; RESP 16; TEMP 97.5; O2SAT 95
[2024-09-25 06:29] LABS: BASOPHILS % (AUTO) 0.4 % (0.0-2.0); EOSINOPHILS % (AUTO) 1.2 % (1.0-6.0); HEMATOCRIT 28.1 % (36-46); HEMOGLOBIN 9.2 g/dL (12.0-16.0); LYMPHOCYTES # (AUTO) 1.4 K/uL (1.0-4.8); LYMPHOCYTES % (AUTO) 9.1 % (22.0-44.0); MEAN CORPUSCULAR HEMOGLOBIN 32.5 pg (26.0-34.0); MEAN CORPUSCULAR HGB CONC 32.8 G/dL (31.0-37.0); MEAN CORPUSCULAR VOLUME 99 fL (80-100); MONOCYTES # (AUTO) 0.8 K/uL (0.1-1.0); MONOCYTES % (AUTO) 5.2 % (2.0-9.0); NEUTROPHILS # (AUTO) 13.2 K/uL (1.8-7.7); NEUTROPHILS % (AUTO) 84.1 % (40.0-70.0); PLATELET COUNT (AUTO) 351 K/uL (150-450); RED BLOOD CELL COUNT(AUTO) 2.83 MIL/uL (4.00-5.20); RED CELL DISTRIBUTION WIDTH 14.1 % (11.5-14.5); WHITE BLOOD COUNT (AUTO) 15.7 K/uL (4.5-11.0)
[2024-09-25] MEDS ORDERED: LIDOCAINE/PF 2% 5 ML SYRINGE IVP ONE (06:33)
[2024-09-25] MEDS ORDERED: PROPOFOL 1% 20 ML VIAL IVP ONE (06:33)
[2024-09-25] MEDS ORDERED: SODIUM CHLORIDE 0.9% 1,000 ML ONE (06:34)
[2024-09-25 06:39] LABS: ANION GAP 9 mmol/L (8-16); CALCIUM, TOTAL 9.1 mg/dL (8.8-10.5); CARBON DIOXIDE 29 mmol/L (22-29); CHLORIDE 110 mmol/L (98-107); CREATININE 0.66 mg/dL (0.60-1.30); GLOMERULAR FILTR. RATE CALC > 60 mL/min (>60); GLUCOSE,RANDOM 121 mg/dL (70-110); SODIUM SERUM 148 mmol/L (136-145); UREA NITROGEN, BLOOD 14 mg/dL (7-18)
[2024-09-25 07:08] LABS: POTASSIUM 2.9 mmol/L (3.5-5.1)
[2024-09-25] MEDS ORDERED: DiphenhydrAMINE HCL 50 MG/ML VIAL ONE (07:29)
[2024-09-25] MEDS ORDERED: FLUMAZENIL 0.1 MG/ML 5 ML VIAL IVP ONE (07:29)
[2024-09-25] MEDS ORDERED: SODIUM TETRADECYL SULFATE 3% 60 MG/2 ML VIAL IVP ONE (07:29)
[2024-09-25] MEDS ORDERED: NALOXONE HCL 0.4 MG/ML VIAL ONE (07:29)
[2024-09-25] MEDS ORDERED: EPINEPHrine 1:10,000 [1 MG/10 ML] SYRINGE ONE (07:30)
[2024-09-25] MEDS ORDERED: ATROPINE SULFATE 0.1 MG/ML 10 ML SYRINGE IVP ONE (07:30)
[2024-09-25] MEDS ORDERED: PANTOPRAZOLE SODIUM 40 MG DR TABLET PO SCH (09:00)
[2024-09-25] MEDS ORDERED: SODIUM CHLORIDE 0.9% 250 ML IV ONE (10:16)
[2024-09-25] MEDS: POTASSIUM CHL 10 MEQ/WATER 50 ML IV SCH (10:20)
[2024-09-25 11:39] VITALS: BP 155/80; PULSE 130; RESP 17; TEMP 98; O2SAT 96
[2024-09-25 14:45] LABS: HEMATOCRIT 27.3 % (36-46); HEMOGLOBIN 8.8 g/dL (12.0-16.0)
[2024-09-25 14:59] LABS: ANION GAP 9 mmol/L (8-16); CALCIUM, TOTAL 8.8 mg/dL (8.8-10.5); CARBON DIOXIDE 27 mmol/L (22-29); CHLORIDE 110 mmol/L (98-107); CREATININE 0.57 mg/dL (0.60-1.30); GLOMERULAR FILTR. RATE CALC > 60 mL/min (>60); GLUCOSE,RANDOM 114 mg/dL (70-110); PHOSPHORUS 2.9 mg/dL (2.5-4.9); POTASSIUM 3.3 mmol/L (3.5-5.1); SODIUM SERUM 146 mmol/L (136-145); UREA NITROGEN, BLOOD 11 mg/dL (7-18)
[2024-09-25 15:35] VITALS: BP 146/82; PULSE 114; RESP 18; TEMP 97.7; O2SAT 96
[2024-09-25] MEDS: SODIUM CHLORIDE 77 MEQ in DEXTROSE 10%-WATER 1,000 ML IV ONE (17:10)
[2024-09-25] MEDS: MAGNESIUM SULFATE 1 GM in DEXTROSE 5%-WATER 50 ML IV ONE (17:58)
[2024-09-25 20:14] VITALS: BP 155/81; PULSE 108; RESP 18; TEMP 98.8; O2SAT 97
[2024-09-25 20:23] LABS: HEMATOCRIT 28.1 % (36-46); HEMOGLOBIN 9.1 g/dL (12.0-16.0)
[2024-09-25 20:34] LABS: ANION GAP 8 mmol/L (8-16); CALCIUM, TOTAL 9.3 mg/dL (8.8-10.5); CARBON DIOXIDE 29 mmol/L (22-29); CHLORIDE 110 mmol/L (98-107); GLOMERULAR FILTR. RATE CALC > 60 mL/min (>60); GLUCOSE,RANDOM 126 mg/dL (70-110); POTASSIUM 3.1 mmol/L (3.5-5.1); SODIUM SERUM 147 mmol/L (136-145); UREA NITROGEN, BLOOD 12 mg/dL (7-18)
[2024-09-25] MEDS: POTASSIUM CHL 10 MEQ/WATER 50 ML IV PRN (21:49)
[2024-09-25 23:52] VITALS: BP 147/90; PULSE 106; RESP 16; TEMP 99; O2SAT 96
[2024-09-26 03:35] VITALS: BP 158/83; PULSE 103; RESP 16; TEMP 98.6; O2SAT 96
[2024-09-26 06:54] LABS: BASOPHILS % (AUTO) 0.3 % (0.0-2.0); HEMATOCRIT 29.3 % (36-46); HEMOGLOBIN 8.3 g/dL (12.0-16.0); LYMPHOCYTES # (AUTO) 1.2 K/uL (1.0-4.8); LYMPHOCYTES % (AUTO) 13.5 % (22.0-44.0); MEAN CORPUSCULAR HEMOGLOBIN 33.5 pg (26.0-34.0); MEAN CORPUSCULAR HGB CONC 28.4 G/dL (31.0-37.0); MEAN CORPUSCULAR VOLUME 118 fL (80-100); MONOCYTES # (AUTO) 0.5 K/uL (0.1-1.0); MONOCYTES % (AUTO) 6.1 % (2.0-9.0); NEUTROPHILS % (AUTO) 78.1 % (40.0-70.0); PLATELET COUNT (AUTO) 295 K/uL (150-450); RED BLOOD CELL COUNT(AUTO) 2.49 MIL/uL (4.00-5.20); RED CELL DISTRIBUTION WIDTH 16.5 % (11.5-14.5); WHITE BLOOD COUNT (AUTO) 8.9 K/uL (4.5-11.0)
[2024-09-26 07:05] LABS: ANION GAP 8 mmol/L (8-16); CALCIUM, TOTAL 9.1 mg/dL (8.8-10.5); CARBON DIOXIDE 27 mmol/L (22-29); CHLORIDE 107 mmol/L (98-107); CREATININE 0.72 mg/dL (0.60-1.30); GLOMERULAR FILTR. RATE CALC > 60 mL/min (>60); GLUCOSE,RANDOM 160 mg/dL (70-110); PHOSPHORUS 2.1 mg/dL (2.5-4.9); POTASSIUM 3.8 mmol/L (3.5-5.1); SODIUM SERUM 142 mmol/L (136-145); UREA NITROGEN, BLOOD 9 mg/dL (7-18)
[2024-09-26 07:29] VITALS: BP 148/80; PULSE 98; RESP 18; TEMP 98; O2SAT 97
[2024-09-26 07:33] LABS: RBC MORPHOLOGY COMMENT ABNORMAL RBC MORPH
[2024-09-26] MEDS: SODIUM,POTASSIUM PHOSPHATES POWDER PACKET PO SCH (09:00)
[2024-09-26 11:10] VITALS: BP 148/91; PULSE 111; RESP 18; TEMP 98; O2SAT 96
[2024-09-26] MEDS: SODIUM PHOS,M-BASIC-D-BASIC 20 MEQ in DEXTROSE 5%-WATER 100 ML IV ONE (11:49)
[2024-09-26 13:01] LABS: HEMATOCRIT 32.3 % (36-46); HEMOGLOBIN 10.5 g/dL (12.0-16.0)
[2024-09-26 16:23] VITALS: BP 108/72; PULSE 111; RESP 18; TEMP 98; O2SAT 95
[2024-09-26 19:58] VITALS: BP 142/72; PULSE 101; RESP 17; TEMP 98.2; O2SAT 97
[2024-09-26 21:00] LABS: HEMATOCRIT 29.2 % (36-46); HEMOGLOBIN 9.7 g/dL (12.0-16.0)
[2024-09-27 00:12] VITALS: BP 152/94; PULSE 92; RESP 17; TEMP 98.2; O2SAT 98
[2024-09-27 04:12] VITALS: BP 131/81; PULSE 83; RESP 15; TEMP 97.3; O2SAT 98
[2024-09-27 08:19] LABS: BASOPHILS % (AUTO) 1.2 % (0.0-2.0); EOSINOPHILS % (AUTO) 2.4 % (1.0-6.0); HEMOGLOBIN 9.4 g/dL (12.0-16.0); LYMPHOCYTES # (AUTO) 1.8 K/uL (1.0-4.8); LYMPHOCYTES % (AUTO) 23.7 % (22.0-44.0); MEAN CORPUSCULAR HEMOGLOBIN 33.2 pg (26.0-34.0); MEAN CORPUSCULAR HGB CONC 33.5 G/dL (31.0-37.0); MEAN CORPUSCULAR VOLUME 99 fL (80-100); MONOCYTES # (AUTO) 0.5 K/uL (0.1-1.0); MONOCYTES % (AUTO) 6.7 % (2.0-9.0); NEUTROPHILS # (AUTO) 5.1 K/uL (1.8-7.7); PLATELET COUNT (AUTO) 437 K/uL (150-450); RED BLOOD CELL COUNT(AUTO) 2.83 MIL/uL (4.00-5.20); RED CELL DISTRIBUTION WIDTH 13.6 % (11.5-14.5); WHITE BLOOD COUNT (AUTO) 7.8 K/uL (4.5-11.0)
[2024-09-27 08:26] LABS: ANION GAP 8 mmol/L (8-16); CALCIUM, TOTAL 8.8 mg/dL (8.8-10.5); CARBON DIOXIDE 28 mmol/L (22-29); CHLORIDE 104 mmol/L (98-107); CREATININE 0.53 mg/dL (0.60-1.30); GLOMERULAR FILTR. RATE CALC > 60 mL/min (>60); GLUCOSE,RANDOM 102 mg/dL (70-110); PHOSPHORUS 2.7 mg/dL (2.5-4.9); SODIUM SERUM 140 mmol/L (136-145); UREA NITROGEN, BLOOD 5 mg/dL (7-18)
[2024-09-27 08:29] VITALS: BP 122/70; PULSE 82; RESP 16; TEMP 97.7; O2SAT 98
[2024-09-27 08:38] LABS: POTASSIUM 2.7 mmol/L (3.5-5.1)
[2024-09-27] MEDS ORDERED: SODIUM CHLORIDE 0.9% 250 ML IV ONE (08:50)
[2024-09-27 11:58] VITALS: BP 138/97; PULSE 79; RESP 19; TEMP 97.7; O2SAT 97
[2024-09-27 16:35] VITALS: BP 126/75; PULSE 83; RESP 18; TEMP 97.9; O2SAT 97
[2024-09-27 18:12] LABS: GLUCOMETER DEV NAME(LOC) 5N.1D; GLUCOSE,POINT OF CARE 151 MG/DL (70-110)
[2024-09-27] MEDS: DEXTROSE 5%-0.45% SODIUM CHL 1,000 ML IV SCH (18:50)
[2024-09-27 19:40] VITALS: BP 142/74; PULSE 97; RESP 17; TEMP 98.1; O2SAT 99
[2024-09-28] VITALS: BP 153/89; PULSE 114; RESP 18; TEMP 98.2; O2SAT 100
[2024-09-28 04:00] VITALS: BP 154/91; PULSE 104; RESP 17; TEMP 97.7; O2SAT 97
[2024-09-28 08:25] VITALS: BP 157/93; PULSE 95; RESP 17; TEMP 97.7; O2SAT 98
[2024-09-28 11:47] LABS: BASOPHILS % (AUTO) 1.1 % (0.0-2.0); EOSINOPHILS % (AUTO) 2.7 % (1.0-6.0); HEMATOCRIT 31.9 % (36-46); HEMOGLOBIN 10.6 g/dL (12.0-16.0); LYMPHOCYTES # (AUTO) 1.8 K/uL (1.0-4.8); LYMPHOCYTES % (AUTO) 25.5 % (22.0-44.0); MEAN CORPUSCULAR HEMOGLOBIN 32.5 pg (26.0-34.0); MEAN CORPUSCULAR HGB CONC 33.2 G/dL (31.0-37.0); MEAN CORPUSCULAR VOLUME 98 fL (80-100); MONOCYTES # (AUTO) 0.4 K/uL (0.1-1.0); NEUTROPHILS # (AUTO) 4.6 K/uL (1.8-7.7); NEUTROPHILS % (AUTO) 64.7 % (40.0-70.0); PLATELET COUNT (AUTO) 496 K/uL (150-450); RED BLOOD CELL COUNT(AUTO) 3.25 MIL/uL (4.00-5.20); RED CELL DISTRIBUTION WIDTH 13.6 % (11.5-14.5); WHITE BLOOD COUNT (AUTO) 7.1 K/uL (4.5-11.0)
[2024-09-28 12:08] LABS: ANION GAP 12 mmol/L (8-16); CALCIUM, TOTAL 8.9 mg/dL (8.8-10.5); CARBON DIOXIDE 25 mmol/L (22-29); CHLORIDE 103 mmol/L (98-107); CREATININE 0.43 mg/dL (0.60-1.30); GLOMERULAR FILTR. RATE CALC > 60 mL/min (>60); GLUCOSE,RANDOM 100 mg/dL (70-110); SODIUM SERUM 140 mmol/L (136-145); UREA NITROGEN, BLOOD 6 mg/dL (7-18)
[2024-09-28 12:27] VITALS: BP 142/75; PULSE 90; RESP 17; TEMP 98.4; O2SAT 100
[2024-09-28 16:06] VITALS: BP 166/86; PULSE 93; RESP 16; TEMP 98.1; O2SAT 98
[2024-09-28] MEDS ORDERED: LORA10TA7 PO (18:10)
[2024-09-28] MEDS: AmLODIPine BESYLATE 2.5 MG TABLET PEG SCH (20:15)
[2024-09-28 21:00] VITALS: BP 122/75; PULSE 99; RESP 18; TEMP 98.2; O2SAT 99
[2024-09-29 00:22] VITALS: BP 103/90; PULSE 100; RESP 17; TEMP 98.4; O2SAT 98
[2024-09-29 04:04] VITALS: BP 129/71; PULSE 107; RESP 18; TEMP 97.9; O2SAT 99
[2024-09-29 08:39] VITALS: BP 135/64; PULSE 103; RESP 17; TEMP 97.9; O2SAT 100
[2024-09-29 09:37] LABS: BASOPHILS % (AUTO) 0.7 % (0.0-2.0); EOSINOPHILS % (AUTO) 2.9 % (1.0-6.0); HEMOGLOBIN 10.4 g/dL (12.0-16.0); LYMPHOCYTES # (AUTO) 1.7 K/uL (1.0-4.8); LYMPHOCYTES % (AUTO) 22.9 % (22.0-44.0); MEAN CORPUSCULAR HEMOGLOBIN 31.8 pg (26.0-34.0); MEAN CORPUSCULAR HGB CONC 32.4 G/dL (31.0-37.0); MEAN CORPUSCULAR VOLUME 98 fL (80-100); MONOCYTES # (AUTO) 0.4 K/uL (0.1-1.0); MONOCYTES % (AUTO) 5.3 % (2.0-9.0); NEUTROPHILS # (AUTO) 5.2 K/uL (1.8-7.7); NEUTROPHILS % (AUTO) 68.2 % (40.0-70.0); PLATELET COUNT (AUTO) 503 K/uL (150-450); RED BLOOD CELL COUNT(AUTO) 3.27 MIL/uL (4.00-5.20); RED CELL DISTRIBUTION WIDTH 13.6 % (11.5-14.5); WHITE BLOOD COUNT (AUTO) 7.6 K/uL (4.5-11.0)
[2024-09-29 12:06] VITALS: BP 143/79; PULSE 98; RESP 17; TEMP 97.9; O2SAT 99
[2024-09-29] MEDS ORDERED: PANT-31 PO (12:43)
[2024-09-29] MEDS ORDERED: QUET25TA PO (12:55)
[2024-09-29 16:44] VITALS: BP 142/81; PULSE 100; RESP 16; TEMP 98.9; O2SAT 99
[2024-09-29 19:36] VITALS: BP 153/96; PULSE 115; RESP 18; TEMP 98.4; O2SAT 99
[2024-09-30 00:10] VITALS: BP 148/75; PULSE 92; RESP 18; TEMP 97.7; O2SAT 98
[2024-09-30 04:43] VITALS: BP 119/71; PULSE 91; RESP 18; TEMP 97.9; O2SAT 99
[2024-09-30 08:02] VITALS: BP 142/88; PULSE 93; RESP 16; TEMP 97.7; O2SAT 96
[2024-09-30 17:08] VITALS: BP 157/81; PULSE 83; RESP 16; TEMP 98.4; O2SAT 98
[2024-09-30] MEDS: AmLODIPine BESYLATE 5 MG TABLET PEG ONE (17:36)
[2024-10-01] MEDS ORDERED: AmLODIPine BESYLATE 5 MG TABLET PEG SCH (09:00)
== END 2024-09-30 18:08 | disposition home or self-care (01) | DRG 378 ==
LOC: EMS 09:29 → EDH 11:47 → 5S 15:07
PROVIDERS: ADMIT Internal Medicine; ATTEND Internal Medicine
PROC: 0DJ08ZZ Inspection of Upper Intestinal Tract, Via Natural or Artificial Opening Endoscopic (ICD-10-PCS; principal; 2024-09-25 08:27)
DX: K92.2 Gastrointestinal hemorrhage, unspecified (principal); F84.0 Autistic disorder; R65.10 Systemic inflammatory response syndrome (SIRS) of non-infectious origin without acute organ dysfunction; K92.0 Hematemesis; D64.9 Anemia, unspecified; Q90.9 Down syndrome, unspecified; R73.9 Hyperglycemia, unspecified; E87.6 Hypokalemia; E83.42 Hypomagnesemia; F79 Unspecified intellectual disabilities; E83.52 Hypercalcemia; E83.39 Other disorders of phosphorus metabolism; R31.9 Hematuria, unspecified; Z66 Do not resuscitate; R62.50 Unspecified lack of expected normal physiological development in childhood; Z79.899 Other long term (current) drug therapy; Z51.5 Encounter for palliative care; Z93.1 Gastrostomy status
CPT/HCPCS: 51702; 71045; 76770; 80048; 80076; 81001; 82271; 82962; 83605; 83690; 83735; 83880; 84100; 84132; 84145; 84484; 85014; 85018; 85025; 85610; 86850; 86900; 86901; 87040; 87081; 87086; 93005; 96365; 96368; 96375; 97163; 97167; 97530; 97535; 99285; J0171; J0461; J0696; J1200; J2310; J2470; J2704; J3475; J3480; J3490; J7030; J7050; J7060; J7131; 36415-L1; 36415-TC; X7700